=== PATIENT | female | born 1975 | race African-American/Black ===

== ENCOUNTER 2016-09-13 10:16 | Emergency (ER) | payer BC ==
[~2016-09-13 10:16] MED LIST: BACTRIM DS TABL1 TAB PO; BP MED; CIPRO PO; DARVOCET-N 1001 TAB PO; DIFLUCAN PO; HYDROCHLOROTHIA25 MG DOB; IBUPROFEN PO; PYRIDIUM PO; RONDEC-DM ORAL30 ML PO; ZITHROMAX PO
[2016-09-13 10:42] LABS: INFLUENZA A NEG (NEG); INFLUENZA B NEG (NEG)
[2016-10-01] MEDS ORDERED: ZYRTEC (00:41)
[2016-10-01] MEDS ORDERED: MOTRIN (00:41)
[2016-10-01] MEDS ORDERED: METOPROLOL (00:41)
[2016-10-01] MEDS ORDERED: ALKA-SELTZER P1 EA11 (00:41)
== END 2016-09-13 11:04 | disposition home or self-care (01) ==
LOC: SED 10:16
PROVIDERS: Nurse Practitioner
DX: B34.9 Viral infection, unspecified (principal); I10 Essential (primary) hypertension; Z79.899 Other long term (current) drug therapy
CPT/HCPCS: 87651; 87804; 99283

== ENCOUNTER 2016-10-01 00:58 | Emergency (ER) | payer BC ==
--- NOTE | ~2016-10-01 | CR63 ---
[facility] A Service [facility] RADIOLOGY TEXT RESULTS PATIENT: YANET ARIAS LOCATION: SED : 75 UNIT #: [id number] AGE: [address]: DAVID SHARPE PA-C SEX: F ORDER DR: [id number] [place] [id number] MR#: [id number] Acc #: [id number] NAME: YANET ARIAS : 1975 SEX: F STUDY DATE/TIME: 10/01/2016 01:16 UNIT: SED ROOM: STUDY DESCRIPTION: CR Chest 2 View Attending Physician: David Sharpe Pa-C Ordering Physician: Lukasz Yu M.D. Primary Care Physician: Andrew Levin M.D. MEDICAL IMAGING REPORT This report is preliminary unless electronic signature is present. EXAM Chest x-ray 10/01 at 01:16 INDICATIONS Body aches, sore throat, headaches, cold chills, fever and cough over the last 2 weeks, but worse over the last 3 days. COMPARISON 07/14/2016 FINDINGS PA and lateral examination of the chest upright shows a good expansion of the parenchyma with a normal distribution of the pulmonary vascularity. There is no indication of congestion, effusion, infiltrate, tumor, or nodular density. The pleural reflections and diaphragmatic contours are normal. The cardiac silhouette and mediastinal anatomy is within normal limits. IMPRESSION Normal chest. Dictated by... Hayder Ji Jr., M.D. THIS IS AN ELECTRONICALLY VERIFIED REPORT Hayder Ji Jr., M.D. at 10/01/2016 5:24 AM [place]/yuridia TD: 10/01/2016 05:19 JOB #: [id number] [facility] A Service [facility] RADIOLOGY TEXT RESULTS PATIENT: YANET ARIAS LOCATION: SED : 75 UNIT #: [id number] AGE: [address]: DAVID SHARPE PA-C SEX: F ORDER DR: MEDICAL IMAGING REPORT Page 1 of 1
[~2016-10-01 00:58] MED LIST changes: +ALKA-SELTZER P1 EA11; +METOPROLOL; +MOTRIN; +ZYRTEC
[2016-10-01 01:05] LABS: INFLUENZA A NEG (NEG); INFLUENZA B NEG (NEG)
== END 2016-10-01 01:43 | disposition home or self-care (01) ==
LOC: SED 00:58
PROVIDERS: Physician Assistant
DX: J03.90 Acute tonsillitis, unspecified (principal); H65.91 Unspecified nonsuppurative otitis media, right ear; R51 Headache; I10 Essential (primary) hypertension
CPT/HCPCS: 71020; 87651; 87804; 99284